=== PATIENT | male | born 1975 | race African-American/Black ===

== ENCOUNTER 2017-11-01 15:23 | Emergency (ER) | payer SELFPAY ==
[2017-11-01 15:46] LABS: BASOPHIL (%) 0.4 % (0-1); EOSINOPHIL (%) 0.6 % (0-5); HEMATOCRIT 45.4 % (38.0-50.0); HEMOGLOBIN 14.7 G/DL (12.5-16.6); IMMATURE GRANULOCYTE (%) 0.2 % (0.0-0.7); LYMPHOCYTE (%) 23.3 % (15-42); LYMPHOCYTE COUNT 1.2 K/uL (1.0-2.8); MCHC 32.4 G/DL (30.0-36.0); MCV 71.2 FL (86-99); MONOCYTE (%) 6.9 % (3-12); MONOCYTE COUNT 0.4 K/uL (0-0.8); NEUTROPHIL (%) 68.6 % (45-76); NEUTROPHIL COUNT 3.6 K/uL (1.8-6.4); PLATELET COUNT 213 K/uL (156-360); RBC DIS.WIDTH-CV 16.3 % (11.8-14.6); RBC DIS.WIDTH-SD 38.7 % (39-53); RED BLOOD COUNT 6.38 M/uL (4.00-5.50); WHITE BLOOD COUNT 5.2 K/uL (4.1-10.2)
[2017-11-01 15:49] LABS: AMYLASE 103 IU/L (1-118); CHLORIDE 103 mEq/L (99-109); POTASSIUM 3.8 mEq/L (3.7-5.4); SODIUM 138 mEq/L (136-147)
[2017-11-01 15:51] LABS: GLUCOSE 87 mg/dL (70-99)
[2017-11-01 15:54] LABS: SERUM ETHYL ALCOHOL < 10 mg/dL
[2017-11-01 15:55] LABS: CREATININE 1.1 mg/dL (0.6-1.3)
[2017-11-01 15:56] LABS: UREA NITROGEN (BUN) 12 mg/dL (9-23)
[2017-11-01 15:58] LABS: LIPASE 26 U/L (1.0-51.0)
[2017-11-01 16:01] LABS: GFR ESTIMATE (CALCULATED) > 59 mL/min/ (58.99-99999)
[2017-11-01] MEDS ORDERED: VICODIN 5-3001 EACH PO (17:25)
== END 2017-11-01 17:44 | disposition home or self-care (01) ==
LOC: TRA 15:23
PROVIDERS: Emergency Medicine Emergency Medical Services
PROC: 3E0234Z Introduction of Serum, Toxoid and Vaccine into Muscle, Percutaneous Approach (ICD-10-PCS; principal; 2017-11-01)
DX: S06.0X0A Concussion without loss of consciousness, initial encounter (principal); S00.03XA Contusion of scalp, initial encounter; S00.12XA Contusion of left eyelid and periocular area, initial encounter; M54.2 Cervicalgia; Y09 Assault by unspecified means; Y99.0 Civilian activity done for income or pay; Z23 Encounter for immunization; R03.0 Elevated blood-pressure reading, without diagnosis of hypertension
CPT/HCPCS: 70450; 70486; 71010; 72125; 80048; 81003; 82150; 83690; 85025; 86850; 86900; 86901; 99281; 99285; G0480; J2270